=== PATIENT | male | born 1955 | race Caucasian/White ===

== ENCOUNTER 2021-10-27 16:18 | Emergency (ER) | payer OTHER ==
--- NOTE | 2021-10-27 16:36 | EDM.PDOC ---
ED HPI GENERAL MEDICAL PROBLEM - General Chief Complaint: General Stated Complaint: FROSTBITE, SHORTNESS OF BREATH Time Seen by Provider: 10/27/21 16:24 Source of Information: Reports: Patient History Limitations: Reports: No Limitations - History of Present Illness INITIAL COMMENTS - FREE TEXT/NARRATIVE: Patient is a 66-year-old male presents today for coldness to his hands and feet. Patient states he was outside for about 20 minutes looking for his Benicar when his fingertips and feet became very cold to the touch. He called because he thought he might have frostbite. He denies any other complaints no fever chills nausea vomiting. He was wearing thin shoes and also no gloves he just came from [place]. Bi-lateral hand Pain Score (Numeric/FACES): 6 - Related Data Allergies Allergy/AdvReac Type Severity Reaction Status Date / Time gabapentin Allergy Rash Verified 10/27/21 16:25 mirtazapine [From Remeron] Allergy Hallucinati Verified 10/27/21 16:25 ons naproxen Allergy Rash Verified 10/27/21 16:25 Sulfa (Sulfonamide Allergy Nausea Verified 10/27/21 16:25 Antibiotics) topiramate [From Topamax] Allergy Hallucinati Verified 10/27/21 16:25 ons zinc Allergy Other Verified 10/27/21 16:25 Home Meds: Home Meds Aspirin [Durlaza] 162.5 mg PO DAILY 10/27/21 [History] Clopidogrel Bisulfate [Plavix] 1 tab PO DAILY 10/27/21 [History] Melatonin 20 mg PO DAILY 10/27/21 [History] Zolpidem Tartrate 10 mg PO DAILY 10/27/21 [History] atorvaSTATin Calcium [Lipitor] 40 mg PO DAILY 10/27/21 [History] carvediloL [Coreg] 12.5 mg PO BID 10/27/21 [History] ED ROS GENERAL - Review of Systems Review Of Systems: See Below Constitutional: Reports: No Symptoms HEENT: Reports: No Symptoms Respiratory: Reports: No Symptoms Cardiovascular: Reports: No Symptoms Endocrine: Reports: No Symptoms GI/Abdominal: Reports: No Symptoms : Reports: No Symptoms Musculoskeletal: Reports: Hand Pain, Foot Pain Skin: Reports: No Symptoms Neurological: Reports: No Symptoms Psychiatric: Reports: No Symptoms Hematologic/Lymphatic: Reports: No Symptoms Immunologic: Reports: No Symptoms ED EXAM, GENERAL - Physical Exam Exam: See Below Exam Limited By: No Limitations General Appearance: Alert, WD/WN, No Apparent Distress Respiratory/Chest: No Respiratory Distress Cardiovascular: Normal Peripheral Pulses, Regular Rate, Rhythm Extremities: Normal Inspection, Normal Range of Motion, Non-Tender, Other (Coldness to the feet but the hands and fingers are warm) Neurological: Alert, Oriented, Normal Cognition, Normal Gait Course - Vital Signs Last Recorded V/S: Last Vital Signs Temp 97.4 F 10/27/21 16:44 Pulse 85 10/27/21 16:44 Resp 18 10/27/21 16:44 BP 114/59 L 10/27/21 16:44 Pulse Ox 95 10/27/21 16:44 - Re-Assessments/Exams Free Text/Narrative Re-Assessment/Exam: 10/27/21 17:21 All extremities are rewarmed core temperature is good patient feels better will be discharged home Departure - Departure Time of Disposition: 17:21 Disposition: Home, Self-Care 01 Condition: Good Clinical Impression: Frostnip - Discharge Information *PRESCRIPTION DRUG MONITORING PROGRAM REVIEWED*: Not Applicable *COPY OF PRESCRIPTION DRUG MONITORING REPORT IN PATIENT TANYA: Not Applicable Instructions: Frostbite, [id number] Forms: ED Department Discharge Additional Instructions: You were seen today for possible mcdonald nip of your fingers and toes. We recommend you continue to try to stay warm. We have attached information you can read over how to stay warm and things look for. If you have any other concerning signs or symptoms please refer to return to the ED otherwise follow- up with primary care physician. The following information is given to patients seen in the emergency department who are being discharged to home. This information is to outline your options for follow-up care. We provide all patients seen in our emergency department with a follow-up referral. The need for follow-up, as well as the timing and circumstances, are variable depending upon the specifics of your emergency department visit. If you don't have a primary care physician on staff, we will provide you with a referral. We always advise you to contact your personal physician following an emergency department visit to inform them of the circumstance of the visit and for follow-up with them and/or the need for any referrals to a consulting specialist. The emergency department will also refer you to a specialist when appropriate. This referral assures that you have the opportunity for follow-up care with a specialist. All of these measure are taken in an effort to provide you with optimal care, which includes your follow-up. Under all circumstances we always encourage you to contact your private physician who remains a resource for coordinating your care. When calling for follow-up care, please make the office aware that this follow-up is from your recent emergency room visit. If for any reason you are refused follow-up, please contact the [facility] Emergency Department at and asked to speak to the emergency department charge nurse. Please follow up with your primary care physician. If you do not have a primary care physician, see below: [facility] [address] [place] [id number] [facility] [address] [place] [address] Sepsis Event Note (ED) - Focused Exam Vital Signs: Vital Signs Temp Pulse Resp BP Pulse Ox 10/27/21 16:44 97.4 F 85 18 114/59 L 95 10/27/21 16:24 97.1 F 85 16 114/59 L 96 - Assessment/Plan Plan: Patient is a 66-year-old male who was brought in today for evaluation of possible frostbite. On exam his hands are warm to touch he does have some coldness to his toes however no discoloration. Will attempt to rewarm and reassess.
== END 2021-10-27 17:41 | disposition home or self-care (01) ==
LOC: MW.ED 16:18
DX: T33.822A Superficial frostbite of left foot, initial encounter (principal); T33.821A Superficial frostbite of right foot, initial encounter; T33.522A Superficial frostbite of left hand, initial encounter; T33.521A Superficial frostbite of right hand, initial encounter; Z88.8 Allergy status to other drugs, medicaments and biological substances; Z88.2 Allergy status to sulfonamides; Z88.6 Allergy status to analgesic agent; X31.XXXA Exposure to excessive natural cold, initial encounter
CPT/HCPCS: 99283